=== PATIENT | male | born 1965 | race Caucasian/White ===

== ENCOUNTER 2018-03-06 10:21 | Inpatient (IN) ==
--- NOTE | 2018-03-06 11:06 | ED ---
HPI General Chief complaint: Psychiatric Symptoms Stated complaint: Psych Eval/FLPD Time Seen by Provider: 03/06/18 11:04 History of Present Illness HPI narrative: 52-year-old male with a history of GERD, ulcerative colitis, PTSD , degenerative disc disease, neuropathy, migraines is brought to the emergency department under Nieto act for homicidal ideations. Patient states that over the last 2-3 months he has had increasingly homicidal thoughts. States that he feels as though he wants to shoot someone. States that over the holidays this anger became directed at his in-laws. States that he has struggled with this in the past and typically is able to suppress these thoughts and control them however over the last few days they have continued to worsen so he called the hotline today for help. He denies suicidal ideations. He denies any physical complaints. He denies alcohol or drug use. No other complaints. He does have a psychiatrist with the [place], last saw them 1 month ago but states he did not told him what was going on at that time. Related Data Home Medications Medication Instructions Recorded Confirmed dicyclomine 20 mg PO QID PRN MDD 80 MG/24 HOURS 03/06/18 03/06/18 gabapentin 900 mg PO BID 03/06/18 03/06/18 omeprazole 20 mg PO BID 03/06/18 03/06/18 ranitidine HCl 300 mg PO BID 03/06/18 03/06/18 topiramate 50 mg PO BID 03/06/18 03/06/18 Allergies Allergy/AdvReac Type Severity Reaction Status Date / Time Penicillins Allergy Anaphylaxis Verified 03/06/18 12:06 trovafloxacin [From Trovan] Allergy Anaphylaxis Verified 03/06/18 12:06 zolpidem [From Ambien] AdvReac Hallucinati Verified 03/06/18 12:06 ons Review of Systems ROS: all other systems reviewed are negative PMFSH Medical History Medical History Depression (Acute) Surgical History Surgical History History of back surgery (Acute) Social History Social History Substance History: No History of Abuse Second Hand Smoke Exposure: No Smoking Status: Never smoker How Often Do You Have a Drink Containing Alcohol: Never Recent Travel in [place] within the Last 8 Weeks: No Recent Out of Country Travel within the Last 8 Weeks: No Exam Narrative Exam Narrative: GENERAL: Well-nourished and well-developed male patient in no acute distress who is nontoxic appearing. SKIN: Warm and dry. HEAD: Normocephalic and atraumatic. EYES: No injection, drainage, or hyphema noted. PERRLA. EOMI. ENT: No nasal drainage noted. Oropharynx is clear. NECK: Supple and the trachea is midline. CARDIOVASCULAR: Regular rate and rhythm. RESPIRATORY: Breath sounds are equal bilaterally with no accessory muscle use, wheezing, rhonchi, or crackles. GASTROINTESTINAL: Abdomen is soft, non-tender, and nondistended. MUSCULOSKELETAL: No obvious deformities, swelling, cyanosis, or ecchymosis is present throughout the upper and lower extremities. Patient has full range of motion without any signs of neurovascular compromise. Distal pulses are 2+ throughout. NEUROLOGICAL: Awake, alert, and oriented. Normal speech and gait. Cranial nerves are grossly intact. Course Initial Documented Vital Signs Temperature 98.2 F 03/06/18 10:38 Pulse Rate 84 03/06/18 10:38 Respiratory Rate 18 03/06/18 10:38 Blood Pressure 139/91 H 03/06/18 10:38 Pulse Oximetry 98 03/06/18 10:38 Last Documented Vital Signs Temperature 97.7 F 03/06/18 14:08 Pulse Rate 72 03/06/18 14:08 Respiratory Rate 16 03/06/18 14:08 Blood Pressure 144/95 H 03/06/18 14:08 Pulse Oximetry 96 03/06/18 14:08 Medical Decision Making MDM Narrative Medical decision making narrative: Patient presents under a Nieto act. Physical examination and vital signs are essentially unremarkable. Patient has no medical complaints to report. Psych screen has been ordered. The laboratory results are unremarkable. The patient is medically cleared for psychiatric evaluation and disposition. Medical Screen Exam Complete: Yes Emergency Medical Condition: Yes Differential Diagnosis Differential Diagnosis: Differential: Depression versus adjustment reaction versus anxiety versus PTSD versus psychosis NOS versus mood disorder NOS versus substance induced mood disorder versus ODD versus adjustment reaction versus schizophrenia versus bipolar disorder versus schizoaffective versus electrolyte abnormality versus dementia versus malingering. Lab Data Result diagrams: 03/06/18 10:45 03/06/18 10:45 Lab Results 03/06/18 03/06/18 Range/Units 10:45 10:45 WBC 8.4 (4.0-11.0) th/mm3 RBC 5.47 (4.50-5.90) mil/mm3 Hgb 17.1 H (13.0-17.0) gm/dL Hct 48.4 (39.0-51.0) % MCV 88.5 (80.0-100.0) fL MCH 31.3 (27.0-34.0) pg MCHC 35.3 (32.0-36.0) % RDW 13.8 (11.6-17.2) % Plt Count 275 (150-450) th/mm3 MPV 7.6 (7.0-11.0) fL Neut % (Auto) 72.7 H (16.0-70.0) % Lymph % (Auto) 20.4 (9.0-44.0) % [place] % (Auto) 4.9 (0.0-8.0) % Eos % (Auto) 1.4 (0.0-4.0) % Baso % (Auto) 0.6 (0.0-2.0) % Neut # (Auto) 6.1 (1.8-7.7) th/mm3 Lymph # (Auto) 1.7 (1.0-4.8) th/mm3 [place] # (Auto) 0.4 (0.0-0.9) th/mm3 Eos # (Auto) 0.1 (0.0-0.4) th/mm3 Baso # (Auto) 0.0 (0.0-0.2) th/mm3 WBC Differential . Differential Comment Auto diff final Sodium 142 (136-145) meq/L Potassium 3.9 (3.5-5.1) meq/L Chloride 109 H (98-107) meq/L Carbon Dioxide 25.7 (21.0-32.0) meq/L Anion Gap 7 (5-15) meq/L BUN 12 (7-18) mg/dL Creatinine 1.14 (0.60-1.30) mg/dL Estimated GFR 67 L (>89) mL/min Random Glucose 99 (74-106) mg/dL Calcium 9.1 (8.5-10.1) mg/dL Magnesium 2.3 (1.5-2.5) mg/dL Total Bilirubin 0.7 (0.2-1.0) mg/dL AST 22 (15-37) U/L ALT 32 (12-78) U/L Alkaline Phosphatase 127 H (45-117) U/L Total Protein 8.2 (6.4-8.2) g/dL Albumin 4.4 (3.4-5.0) g/dL TSH 1.620 (0.358-3.740) uIU/mL Serum Alcohol Less than 3 (0-5) mg/dL Discharge Plan Discharge Disposition Patient Disposition: ED Admit(ED Internal Use Only) Discharge Condition Condition: Stable Discharge Order Discharge Orders: ED Use Only Admit Order (Routine); Ordered 03/06/18 Ordered By: Liat Chacko Discharge Details Diagnosis: Homicidal ideation, Depression, Post traumatic stress disorder (PTSD) Physicians Team ED Provider: Elizabeth Zhao ED Midlevel Provider: Radha Munroe Primary Care Provider: [facility] '[facility] Other Providers: Ioana Martinez Rxs /Orders / Referrals /Forms Prescriptions: No Action gabapentin 600 mg Tablet 900 mg PO BID RF: 0 ranitidine HCl 300 mg Tablet 300 mg PO BID RF: 0 dicyclomine 20 mg Tablet 20 mg PO QID MDD 80 MG/24 HOURS PRN (Reason: Gastrointestinal Spasms Or Cramping) RF: 0 omeprazole 20 mg Capsule,Delayed Release(Dr/Ec) 20 mg PO BID RF: 0 topiramate 50 mg Tablet 50 mg PO BID RF: 0 Discharge Interventions Interventions: Vital Signs Last Done: 03/06/18 14:08 Status ED Status: Medically Cleared
[2018-03-06 11:11] LABS: Baso % (Auto) 0.6 % (0.0-2.0); Eos # (Auto) 0.1 th/mm3 (0.0-0.4); Eos % (Auto) 1.4 % (0.0-4.0); Hematocrit 48.4 % (39.0-51.0); Hemoglobin 17.1 gm/dL (13.0-17.0); Lymph # (Auto) 1.7 th/mm3 (1.0-4.8); Lymph % (Auto) 20.4 % (9.0-44.0); Mean Corpuscular HGB Conc 35.3 % (32.0-36.0); Mean Corpuscular Hemoglobin 31.3 pg (27.0-34.0); Mean Corpuscular Volume 88.5 fL (80.0-100.0); Mean Platelet Volume 7.6 fL (7.0-11.0); Mono # (Auto) 0.4 th/mm3 (0.0-0.9); Mono % (Auto) 4.9 % (0.0-8.0); Neut # (Auto) 6.1 th/mm3 (1.8-7.7); Neut % (Auto) 72.7 % (16.0-70.0); Platelet Count 275 th/mm3 (150-450); Red Blood Count 5.47 mil/mm3 (4.50-5.90); Red Cell Distribution Width 13.8 % (11.6-17.2); White Blood Count 8.4 th/mm3 (4.0-11.0)
[2018-03-06 11:29] LABS: Alanine Aminotransferase 32 U/L (12-78); Albumin 4.4 g/dL (3.4-5.0); Anion Gap 7 meq/L (5-15); Aspartate Aminotransferase 22 U/L (15-37); Blood Urea Nitrogen 12 mg/dL (7-18); Calcium 9.1 mg/dL (8.5-10.1); Carbon Dioxide 25.7 meq/L (21.0-32.0); Chloride 109 meq/L (98-107); Glomerular Filtration Rate 67 mL/min (>89); Glucose,Random 99 mg/dL (74-106); Magnesium 2.3 mg/dL (1.5-2.5); Potassium 3.9 meq/L (3.5-5.1); Sodium 142 meq/L (136-145)
[2018-03-06 11:40] LABS: Alkaline Phosphatase 127 U/L (45-117); Total Protein 8.2 g/dL (6.4-8.2)
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
[2018-03-06] MEDS ORDERED: Ibuprofen 600 MG Tablet PO PRN (15:01)
[2018-03-06] MEDS ORDERED: Aluminum/Magnesium/Simethacone Susp 30 ML UDC PO PRN (15:01)
[2018-03-06] MEDS ORDERED: traZODone 50 MG Tablet PO PRN (15:01)
[2018-03-06 16:15] LABS: Amphetamine Screen,Urine Neg (Neg); Barbiturate Screen,Urine Neg (Neg); Cannabinoid Screen,Urine Pos (Neg); Cocaine Screen,Urine Neg (Neg)
[2018-03-06 16:20] LABS: Opiate Screen,Urine Neg (Neg)
[2018-03-06] MEDS ORDERED: Methocarbamol 500 MG Tablet PO ONE (21:00)
[2018-03-06] MEDS: Ibuprofen 600 MG Tablet PO PRN (23:50)
[2018-03-06] MEDS: Senna/Docusate Sodium 8.6/50 MG Tablet PO SCH (23:52)
[2018-03-06] MEDS: traZODone 50 MG Tablet PO PRN (23:57)
[2018-03-07] MEDS: Senna/Docusate Sodium 8.6/50 MG Tablet PO SCH ×2 (08:18→20:28)
[2018-03-07] MEDS: Ibuprofen 600 MG Tablet PO PRN ×2 (08:20→20:26)
[2018-03-07 09:26] LABS: Calcium 9.1 mg/dL (8.5-10.1); Carbon Dioxide 26.7 meq/L (21.0-32.0); Potassium 3.6 meq/L (3.5-5.1)
[2018-03-07 09:29] LABS: Chol/HDL Ratio 3.64 Ratio; HDL Cholesterol 46.4 mg/dL (40.0-60.0)
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
[2018-03-07] MEDS: FLUoxetine 20 MG Capsule PO SCH (12:12)
--- NOTE | 2018-03-07 16:29 | P.CON ---
History of Present Illness Service: [facility] Consult date: 03/07/18 Requesting Physician: Liat Chacko Reason for Consult: Management of Neuropathy and Pain Primary Care Provider: [facility] Chief Complaint: homicidal, chronic pain History of Present Illness: 52-year-old male with history of neuropathy, arthritis, ulcerative colitis, depression, migraines, JOSE on CPAP, admitted to inpatient psychiatry for homicidal ideations. Hospitalist consulted for "medical management of neuropathy and pain, has been on 3200 mg of gabapentin and uses medical marijuana". Patient is seen resting in bed. He denies any significant medical complaints. He states his pain is at his baseline, however he is concerned because he is prescribed medical marijuana for pain at home. He also reports that he takes gabapentin for his neuropathy. He states he walks with a cane at home and also has a motorized wheelchair for longer distances. He is also on CPAP for his sleep apnea at home, no added oxygen. He denies any other medical complaints including no fever/chills, headache, lightheadedness, chest pain, palpitations, shortness of breath, or abdominal complaints. Review of Systems All other systems reviewed negative except as stated in HPI PMFSH - History History Provided By: Patient, Medical Record, Law Enforcement - Medical History Medical History: Medical History (Last Updated 03/06/18 @ 10:44 by Catina Diaz) Depression - Surgical History Surgical History: Surgical History (Last Updated 03/06/18 @ 10:44 by Catina Diaz) History of back surgery - Tobacco History Second Hand Smoke Exposure: No Smoking Status: Never smoker - Alcohol History How Often Do You Have a Drink Containing Alcohol: Never - Substance Use History Substance History: No History of Abuse - Travel History Recent Travel in the [place] Within the Last 8 Weeks: No Recent Travel Out of the Country Within the Last 8 Weeks: No - Immunization History Tetanus Immunization: >5 Years Medications and Allergies Active Medications: Active Medications Al Hydrox/Mg Hydrox/Simethicone (Mag-Al Plus Susp Liq) 30 ml PO Q6H PRN PRN Reason: DYSPEPSIA Al Hydroxide/Mg Hydroxide (Milk Of Magnesia Liq) 30 ml PO Q12H PRN PRN Reason: Mild Constipation Diphenhydramine HCl (Benadryl) 50 mg PO HS PRN PRN Reason: For mild anxiety and/or EPS Last Admin: 03/06/18 23:56 Dose: 50 mg Fluoxetine HCl (Prozac) 20 mg PO DAILY VENITA Last Admin: 03/07/18 12:12 Dose: 20 mg Hydroxyzine HCl (Atarax) 50 mg PO Q6H PRN PRN Reason: ANXIETY Last Admin: 03/07/18 12:11 Dose: 50 mg Ibuprofen (Motrin) 600 mg PO Q6H PRN PRN Reason: PAIN 1-10 Last Admin: 03/07/18 08:20 Dose: 600 mg Risperidone (Risperdal) 1 mg PO HS VENITA Senna/Docusate Sodium (Shameka-Colace) 1 tab PO BID VENITA Last Admin: 03/07/18 08:18 Dose: Not Given Sennosides (Senokot) 17.2 mg PO Q12H PRN PRN Reason: Moderate Constipation Trazodone HCl (Desyrel) 100 mg PO HS PRN PRN Reason: INSOMNIA Last Admin: 03/06/18 23:57 Dose: 100 mg Allergies Allergy/AdvReac Type Severity Reaction Status Date / Time Penicillins Allergy Anaphylaxis Verified 03/06/18 12:06 trovafloxacin [From Trovan] Allergy Anaphylaxis Verified 03/06/18 12:06 zolpidem [From Ambien] AdvReac Hallucinati Verified 03/06/18 12:06 ons Home Medications Medication Instructions Recorded Confirmed Type dicyclomine 20 mg PO QID PRN MDD 80 MG/24 HOURS 03/06/18 03/06/18 History gabapentin 900 mg PO BID 03/06/18 03/06/18 History omeprazole 20 mg PO BID 03/06/18 03/06/18 History ranitidine HCl 300 mg PO BID 03/06/18 03/06/18 History topiramate 50 mg PO BID 03/06/18 03/06/18 History Physical Exam Vital signs: Vital Signs 03/06/18 18:15 03/07/18 00:00 03/07/18 05:19 Temperature 98.5 F 98.0 F 98.2 F Pulse Rate 74 74 73 Respiratory Rate 16 18 17 Blood Pressure 145/86 H 149/94 H 116/63 Pulse Oximetry 98 96 03/07/18 15:45 Temperature 99.0 F Pulse Rate 88 Respiratory Rate 18 Blood Pressure 128/87 Pulse Oximetry 96 Intake & Output 03/06/18 03/07/18 03/07/18 18:59 06:59 18:59 Weight 108.862 kg 108.3 kg Other: Weight On Admission 108.3 kg Narrative: GENERAL: Well-nourished, well-developed middle-age male patient in [facility]. SKIN: Warm and dry. No rash. HEENT: Normocephalic. Atraumatic. Pupils equal and round. Mucous membranes pink and moist. NECK: Supple. Trachea midline. CARDIOVASCULAR: Regular rate and rhythm. No murmur appreciated. RESPIRATORY: No accessory muscle use. Clear to auscultation. Breath sounds equal bilaterally. GASTROINTESTINAL: Abdomen soft, non-tender, nondistended. Normoactive bowel sounds x4. MUSCULOSKELETAL: No obvious deformities. Extremities without clubbing, cyanosis , or edema. NEUROLOGICAL: Awake and alert. No obvious cranial nerve deficits. Motor grossly within normal limits. Moving all extremities spontaneously. Normal speech. Results - Labs CBC & Chem 7: 03/06/18 10:45 03/07/18 08:40 Labs: Laboratory Results - last 24 hr 03/07/18 08:40 Sodium 140 Potassium 3.6 Chloride 108 H Carbon Dioxide 26.7 Anion Gap 5 BUN 12 Creatinine 1.22 Estimated GFR 62 L Random Glucose 141 H Calcium 9.1 Triglycerides 42 Cholesterol 169 LDL Cholesterol, Calc 114 H HDL Cholesterol 46.4 Cholesterol/HDL Ratio 3.64 Assessment and Plan - Plan 52-year-old male with history of neuropathy, arthritis, ulcerative colitis, depression, migraines, JOSE on CPAP, admitted to inpatient psychiatry for homicidal ideations. Hospitalist consulted for "medical management of neuropathy and pain, has been on 3200 mg of gabapentin and uses medical marijuana". Depression/homicidal ideations: Acute -Continue management per psychiatry Chronic pain/neuropathy/arthritis/migraines: Chronic -Continue patient's home medications including gabapentin and Topamax -Consult PT -consider giving marinol to replace home medical marijuana use Ulcerative colitis: Chronic, no reported recent abdominal complaints -Continue patient's dicyclomine, Zantac, and PPI JOSE on CPAP: Chronic -Okay to continue CPAP when cleared by psychiatry, unclear if tubing/machine is safe for this homicidal patient DVT Prophylaxis: patient is ambulatory
[2018-03-07 16:53] LABS: Hemoglobin A1c 5.4 % (4.3-6.0)
[2018-03-07] MEDS: Pantoprazole Sodium 20 MG DR Tablet PO SCH (20:26)
[2018-03-07] MEDS: Gabapentin 300 MG Capsule PO SCH (20:26)
[2018-03-07] MEDS: Topiramate 25 MG Tablet PO SCH (20:27)
[2018-03-07] MEDS: traZODone 50 MG Tablet PO PRN (20:27)
[2018-03-07] MEDS: Famotidine 20 MG Tablet PO SCH (20:27)
[2018-03-08] MEDS: Famotidine 20 MG Tablet PO SCH ×2 (08:41→21:33)
[2018-03-08] MEDS: Senna/Docusate Sodium 8.6/50 MG Tablet PO SCH ×2 (08:41→21:38)
[2018-03-08] MEDS: Pantoprazole Sodium 20 MG DR Tablet PO SCH ×2 (08:41→21:33)
[2018-03-08] MEDS: FLUoxetine 20 MG Capsule PO SCH (08:42)
[2018-03-08] MEDS: Gabapentin 300 MG Capsule PO SCH ×2 (08:42→17:35)
[2018-03-08] MEDS: Topiramate 25 MG Tablet PO SCH ×2 (08:42→21:33)
[2018-03-08] MEDS: Ibuprofen 600 MG Tablet PO PRN ×2 (08:43→21:36)
--- NOTE | 2018-03-08 14:47 | P.PNPSY ---
Subjective Remarks: Patient seen for follow-up, chart reviewed. Discussion with nursing staff reported that patient no behavioral disturbances overnight, attending groups. Patient was found in the room noted B, cooperative. Patient state he is feeling "okay" that he is sleeping better with restart of medications. Patient reported having some back pain but states this is chronic. Patient states his mood has been "out of sorts" reporting feeling a little groggy with the start of risperidone. Patient denies any auditory visual hallucinations. Denies any homicidal ideations at this time stating "I do not want to hurt anybody". He spoke mentions having visited with his yesterday and spoken to her over the phone which she states that mentioned that he sounded more like himself. He was also reporting that his had mentioned to him that she would be locking her doors for the past couple of weeks which she was not aware of due to concern for her safety but could not elaborate. He denies any history of domestic violence or physical aggression toward his . Review of Systems All other systems reviewed negative except as stated in HPI Mental Status Examination Appearance: Appropriate Consciousness: Alert Orientation: x4 Motor Activity: Normal gait Speech: Unremarkable Language: Adequate Fund of Knowledge: Adequate Attention and Concentration: Adequate Memory: Unremarkable Mood: Sad Affect: Flat Thought Process & Associations: Intact Thought Content: Appropriate Hallucination Type: None Delusion Type: None Suicidal Ideation: No Suicidal Plan: No Suicidal Intention: No Homicidal Ideation: Yes (Denies today) Homicidal Plan: No Homicidal Intention: No Insight: Poor Judgment: Poor Assessment and Plan - Assessment (1) Adjustment disorder with mixed disturbance of emotions and conduct Code(s): F43.25 - Adjustment disorder with mixed disturbance of emotions and conduct Status: Acute (2) Post traumatic stress disorder (PTSD) Code(s): F43.10 - Post-traumatic stress disorder, unspecified Status: Acute - Plan Plan: Patient at this time states having improved mood, denying any homicidal ideations at this time. We will continue current treatment. We will continue to monitor mood and behavior. Discharge planning in progress. Justification for Continued Inpatient Stay: At risk of further decompensation at lower level care.
--- NOTE | 2018-03-08 14:54 | P.PN ---
Subjective Interval history: Follow-up for chronic pain, neuropathy. Patient reports continued diffuse back pain. He states he believes it is because he is not getting his typical dose of gabapentin or his medical marijuana. He states he uses all different forms of medical marijuana at least 3 times a day. He was also taking 1800 mg of gabapentin twice a day. He states that ibuprofen he is receiving is not helping his pain. He is still ambulatory without any assistive device. He has been seen and cleared by physical therapy today. Patient has no other medical complaints at this time including no fever/chills, chest pain, shortness of breath, or abdominal complaints. Physical Exam Vital signs: Vital Signs 03/07/18 15:45 03/07/18 22:31 03/08/18 06:00 Temperature 99.0 F 98 F Pulse Rate 88 99 H Respiratory Rate 18 16 18 Blood Pressure 128/87 121/68 Pulse Oximetry 96 96 Narrative: GENERAL: Well-nourished, well-developed middle-age male patient in [facility]. SKIN: Warm and dry. No rash. HEENT: Normocephalic. Atraumatic. Pupils equal and round. Mucous membranes pink and moist. CARDIOVASCULAR: Regular rate and rhythm. No murmur appreciated. RESPIRATORY: No accessory muscle use. Clear to auscultation. Breath sounds equal bilaterally. GASTROINTESTINAL: Abdomen soft, non-tender, nondistended. Normoactive bowel sounds x4. MUSCULOSKELETAL: No obvious deformities. Extremities without clubbing, cyanosis , or edema. NEUROLOGICAL: Awake and alert. No obvious cranial nerve deficits. Motor grossly within normal limits. Moving all extremities spontaneously. Normal speech. Results - Labs CBC & Chem 7: 03/06/18 10:45 03/07/18 08:40 Laboratory Results - last 24 hr 03/07/18 08:40 Hemoglobin A1c 5.4 Assessment and Plan - Plan 52-year-old male with history of neuropathy, arthritis, ulcerative colitis, depression, migraines, JOSE on CPAP, admitted to inpatient psychiatry for homicidal ideations. Hospitalist consulted for "medical management of neuropathy and pain, has been on 3200 mg of gabapentin and uses medical marijuana". Depression/homicidal ideations: Acute -Continue management per psychiatry Chronic pain/neuropathy/arthritis/migraines: Chronic -Continue patient's home medications including gabapentin and Topamax -Consult PT, no PT needed, cleared from their standpoint -Will give Marinol as patient takes medical marijuana at home at least 3 times a day Ulcerative colitis: Chronic, no reported recent abdominal complaints -Continue patient's dicyclomine, Zantac, and PPI JOSE on CPAP: Chronic -Okay to continue CPAP when cleared by psychiatry, unclear if tubing/machine is safe for this homicidal patient DVT Prophylaxis: patient is ambulatory
[2018-03-08] MEDS: traZODone 50 MG Tablet PO PRN (21:33)
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
[2018-03-09] MEDS: Pantoprazole Sodium 20 MG DR Tablet PO SCH ×2 (10:05→20:41)
[2018-03-09] MEDS: Senna/Docusate Sodium 8.6/50 MG Tablet PO SCH ×2 (10:06→20:40)
[2018-03-09] MEDS: Gabapentin 300 MG Capsule PO SCH ×3 (10:06→17:47)
[2018-03-09] MEDS: FLUoxetine 20 MG Capsule PO SCH (10:06)
[2018-03-09] MEDS: Topiramate 25 MG Tablet PO SCH ×2 (10:06→20:41)
[2018-03-09] MEDS: Famotidine 20 MG Tablet PO SCH ×2 (10:06→20:41)
--- NOTE | 2018-03-09 15:55 | P.PN ---
Subjective Interval history: Follow-up for back pain, neuropathy. The patient reports continued diffuse low back pain, worse since he has been in the hospital. He reports 2 recent falls prior to this polarization. He states he has multiple back surgeries with hardware placement, and he is concerned that the hardware has shifted. He follows with a neurosurgeon in [facility]. He reports it has been over a year since he has had any spinal imaging. He is requesting x-rays of the spine. He does believe that the Marinol is helping, since his pain was fairly well controlled with medical marijuana at home prior to admission. He has still been ambulatory, which he also believes is exacerbating his pain. He states he is mostly in a motorized wheelchair at home, and only uses cane for short distances. Physical Exam Vital signs: Vital Signs 03/08/18 17:23 03/08/18 22:35 03/09/18 05:26 Temperature 99.0 F 98.6 F Pulse Rate 89 84 Respiratory Rate 17 16 16 Blood Pressure 145/85 H 103/57 L Pulse Oximetry 97 92 L Intake & Output 03/08/18 03/09/18 03/09/18 18:59 06:59 18:59 Intake Total 240 / 240 Balance 240 / 240 Intake: Oral 240 / 240 Other: Date of Last Bowel Movement 03/08/18 Narrative: GENERAL: Well-nourished, well-developed middle-age male patient in [facility]. SKIN: Warm and dry. No rash. HEENT: Normocephalic. Atraumatic. Pupils equal and round. Mucous membranes pink and moist. CARDIOVASCULAR: Regular rate and rhythm. No murmur appreciated. RESPIRATORY: No accessory muscle use. Clear to auscultation. Breath sounds equal bilaterally. GASTROINTESTINAL: Abdomen soft, non-tender, nondistended. Normoactive bowel sounds x4. MUSCULOSKELETAL: No obvious deformities. Extremities without clubbing, cyanosis , or edema. Lumbar spine with mild diffuse TTP and mild palpable protrusion of spine/hardware. NEUROLOGICAL: Awake and alert. No obvious cranial nerve deficits. Motor grossly within normal limits. Moving all extremities spontaneously. Normal speech. Results - Labs CBC & Chem 7: 03/06/18 10:45 03/07/18 08:40 Assessment and Plan - Plan 52-year-old male with history of neuropathy, arthritis, ulcerative colitis, depression, migraines, JOSE on CPAP, admitted to inpatient psychiatry for homicidal ideations. Hospitalist consulted for "medical management of neuropathy and pain, has been on 3200 mg of gabapentin and uses medical marijuana". Depression/homicidal ideations: Acute -Continue management per psychiatry Chronic pain/neuropathy/arthritis/migraines: Chronic, had extensive lumbar spine surgeries with hardware placement -Continue patient's home medications including gabapentin and Topamax -Consult PT, no PT needed, cleared from their standpoint -Will give Marinol as patient takes medical marijuana at home at least 3 times a day -patient reporting worsening back pain, concerned about shifting of lumbar spine hardware, will check lumbar spine xray Ulcerative colitis: Chronic, no reported recent abdominal complaints -Continue patient's dicyclomine, Zantac, and PPI JOSE on CPAP: Chronic -Okay to continue CPAP when cleared by psychiatry, unclear if tubing/machine is safe for this homicidal patient DVT Prophylaxis: patient is ambulatory
--- NOTE | 2018-03-09 16:51 | XR ---
EXAM DATE: 03/09/2018 4:43 PM EST AGE/SEX: 52 years / Male INDICATIONS: Lumbar pain. CLINICAL DATA: This is the patient's initial encounter. Patient reports that signs and symptoms have been present for 1 week and indicates a pain score of 8/10. MEDICAL/SURGICAL HISTORY: None. . Lumbar fusion. COMPARISON: No prior exams available for comparison. FINDINGS: Postsurgical features of prior posterior kendal and screw fixation at L2-S1 with bilateral SI joint fixa tion and intradiscal hardware at L4-5 and L5-S1. Hardware appears grossly intact. There is exaggerate d kyphosis of the thoracolumbar junction. Prominent degenerative change most notably at L3-4. Vertebr al body heights are intact. No definite acute fracture. Soft tissues are unremarkable. CONCLUSION: 1. Extensive posterior fixation including bilateral SI joint fixation, as above. 2. Multilevel degenerative spondylosis most notably at L3-4. 3. No acute radiographic abnormality. Electronically signed by: Shawn Mendez MD Board Certified Radiologist 03/09/2018 4:50 PM EST
[2018-03-10] MEDS: Gabapentin 300 MG Capsule PO SCH ×3 (08:37→17:52)
[2018-03-10] MEDS: FLUoxetine 20 MG Capsule PO SCH (08:37)
[2018-03-10] MEDS: Topiramate 25 MG Tablet PO SCH ×2 (08:38→21:22)
[2018-03-10] MEDS: Famotidine 20 MG Tablet PO SCH ×2 (08:38→21:22)
[2018-03-10] MEDS: Pantoprazole Sodium 20 MG DR Tablet PO SCH ×2 (08:38→21:23)
[2018-03-10] MEDS: Senna/Docusate Sodium 8.6/50 MG Tablet PO SCH ×2 (11:22→21:23)
--- NOTE | 2018-03-10 12:06 | P.PN ---
Subjective Interval history: Follow up for back pain, neuropathy. The patient is seen sitting in the day room. He reports feeling better today. He states his back is still sore, which he believes is from increased activity in hospital compared to when he's at home. Reviewed his xray results. The patient denied any other medical complaints. Physical Exam Vital signs: Vital Signs 03/10/18 05:49 Temperature 98.3 F Pulse Rate 51 L Respiratory Rate 17 Blood Pressure 119/66 Pulse Oximetry 96 Intake & Output 03/09/18 03/10/18 03/10/18 18:59 06:59 18:59 Intake Total 240 / 240 720 / 720 Balance 240 / 240 720 / 720 Intake: Oral 240 / 240 720 / 720 Narrative: GENERAL: Well-nourished, well-developed pleasant middle-age male patient in [facility]. SKIN: Warm and dry. No rash. HEENT: Normocephalic. Atraumatic. Pupils equal and round. Mucous membranes pink and moist. CARDIOVASCULAR: Regular rate and rhythm. No murmur appreciated. RESPIRATORY: No accessory muscle use. Clear to auscultation. Breath sounds equal bilaterally. GASTROINTESTINAL: Abdomen soft, non-tender, nondistended. Normoactive bowel sounds x4. MUSCULOSKELETAL: No obvious deformities. Extremities without clubbing, cyanosis , or edema. NEUROLOGICAL: Awake and alert. No obvious cranial nerve deficits. Motor grossly within normal limits. Moving all extremities spontaneously. Normal speech. Results - Labs CBC & Chem 7: 03/06/18 10:45 03/07/18 08:40 - Imaging Impressions Lumbar Spine X-Ray 03/09/18 00:00 CONCLUSION: 1. Extensive posterior fixation including bilateral SI joint fixation, as above. 2. Multilevel degenerative spondylosis most notably at L3-4. 3. No acute radiographic abnormality. Assessment and Plan - Plan 52-year-old male with history of neuropathy, arthritis, ulcerative colitis, depression, migraines, JOSE on CPAP, admitted to inpatient psychiatry for homicidal ideations. Hospitalist consulted for "medical management of neuropathy and pain, has been on 3200 mg of gabapentin and uses medical marijuana". Depression/homicidal ideations: Acute -Continue management per psychiatry Chronic pain/neuropathy/arthritis/migraines: Chronic, had extensive lumbar spine surgeries with hardware placement -Continue patient's home medications including gabapentin and Topamax -Consult PT, no PT needed, cleared from their standpoint -Will give Marinol as patient takes medical marijuana at home at least 3 times a day -patient reporting worsening back pain, concerned about shifting of lumbar spine hardware, checked lumbar spine xray which was unremarkable for any acute findings, reviewed results with the patient -back pain stable, continue outpatient f/up with neurosurgeon in [place] Ulcerative colitis: Chronic, no reported recent abdominal complaints -Continue patient's dicyclomine, Zantac, and PPI JOSE on CPAP: Chronic -Okay to continue CPAP when cleared by psychiatry, unclear if tubing/machine is safe for this homicidal patient DVT Prophylaxis: patient is ambulatory Discharge Planning: The patient is medically stable at this time. Hospitalists will sign off. Please re-consult hospitalists as needed or if any new issues arise. Thank you very much for this consultation.
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
[2018-03-11] MEDS: Famotidine 20 MG Tablet PO SCH ×2 (09:40→21:46)
[2018-03-11] MEDS: Senna/Docusate Sodium 8.6/50 MG Tablet PO SCH ×2 (09:40→21:46)
[2018-03-11] MEDS: Gabapentin 300 MG Capsule PO SCH ×3 (09:40→17:05)
[2018-03-11] MEDS: FLUoxetine 20 MG Capsule PO SCH (09:40)
[2018-03-11] MEDS: Pantoprazole Sodium 20 MG DR Tablet PO SCH ×2 (09:40→21:46)
[2018-03-11] MEDS: Topiramate 25 MG Tablet PO SCH ×2 (09:40→21:46)
[2018-03-11] MEDS: Ibuprofen 600 MG Tablet PO PRN (13:36)
--- NOTE | 2018-03-11 18:18 | P.PNPSY ---
Subjective Remarks: Reviewed electronic medical records and discussed case with staff. Follow-up was conducted in the hallway with NATHEN Quinteros present. Nurse reports that he has been compliant with his treatment is been doing much better. She states he is hopeful for discharge tomorrow. Patient reports that he feels "fine". States that he had a good day. Reports that he sleeping well he has had a good appetite. States his mood is good his affect is euthymic throughout the follow- up. Mental Status Examination Appearance: Appropriate Consciousness: Alert Orientation: x4 Motor Activity: Normal gait Speech: Unremarkable Language: Adequate Fund of Knowledge: Adequate Attention and Concentration: Adequate Memory: Unremarkable Mood: Sad (Lessening) Affect: Flat Thought Process & Associations: Intact Thought Content: Appropriate Hallucination Type: None Delusion Type: None Suicidal Ideation: No Suicidal Plan: No Suicidal Intention: No Homicidal Ideation: Yes (Denies today) Homicidal Plan: No Homicidal Intention: No Insight: Poor Judgment: Poor Assessment and Plan - Assessment (1) Post traumatic stress disorder (PTSD) Code(s): F43.10 - Post-traumatic stress disorder, unspecified Status: Acute - Plan Plan: Patient will be reevaluated by the attending psychiatrist. Continue with current treatment plan. Justification for Continued Inpatient Stay: Moving this patient to a less restrictive environment would likely result in decompensation.
[2018-03-12 05:28] VITALS: BP 104/59; PULSE 95; RESP 18; TEMP 98.3; O2SAT 95
--- NOTE | 2018-03-12 08:35 | P.TTN ---
- Patient Problems Problems: 1. Discharge planning 2. Medication compliance 3. Knowledge deficit 4. Lack of coping skills - Progress Toward Goals Provider Present: Dr. Mariza Campbell Provider Input: 03/12/18 Per MD pt is doing better, he will meet with him today and see if pt is ready for d/c. Nurse Input: 03/12/18 Per RN pt is compliant with meds and has no beh issues. Psychiatric Counselors Present: Other Psychiatric Therapist Input: 03/12/18 Therapist working on d/c with pt back home after his daughter and son in law leave the home. Group Spec/RT/OT/BARLOW Present: Dexter Galindo OT Group Spec/RT/OT/BARLOW Input: 03/12/18 Pt goes to select groups and participates with some prompting. - Documentation Teaching Recipient: Patient
[2018-03-12] MEDS: Senna/Docusate Sodium 8.6/50 MG Tablet PO SCH ×2 (08:57→08:59)
[2018-03-12] MEDS: Gabapentin 300 MG Capsule PO SCH (08:58)
[2018-03-12] MEDS: Topiramate 25 MG Tablet PO SCH (08:58)
[2018-03-12] MEDS: Pantoprazole Sodium 20 MG DR Tablet PO SCH (08:59)
[2018-03-12] MEDS: Famotidine 20 MG Tablet PO SCH (08:59)
[2018-03-12] MEDS: FLUoxetine 20 MG Capsule PO SCH (08:59)
[2018-03-12] MEDS: Ibuprofen 600 MG Tablet PO PRN (09:02)
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
== END 2018-03-12 11:15 | disposition home or self-care (01) | DRG 882 ==
LOC: NEPJ 10:21 → NEDA 15:48 → H270 21:05 → H260 03-08 13:16
PROVIDERS: ADMIT Student in an Organized Health Care Education/Training Program; ATTEND Student in an Organized Health Care Education/Training Program
CPT/HCPCS: 72100; 80048; 80053; 80061; 80307; 83036; 83735; 84443; 85025; 90791; 97162; 99285; Q0163